=== PATIENT | female | born 2000 | race African-American/Black ===

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

== ENCOUNTER 2024-01-22 23:46 | Emergency (ER) | payer MEDICAID ==
[~2024-01-22] VITALS: Ht 172.7 cm; Wt 92.0 kg
[~2024-01-22 23:46] MED LIST: OLAN7.5T18 PO; OLAN7.5T22 PO
[2024-01-23 00:34] VITALS: BP 115/70; PULSE 100; RESP 16; TEMP 98.5
== END 2024-01-23 04:01 | disposition left against medical advice (07) ==
LOC: EMS 23:46
DX: N93.9 Abnormal uterine and vaginal bleeding, unspecified (principal)
CPT/HCPCS: 99281; Z7502

== ENCOUNTER 2024-10-19 01:55 | Emergency (ER) | payer MEDICAID, OTHER ==
[~2024-10-19 01:55] MED LIST changes: -OLAN7.5T18 PO; +[UNRECOGNIZED DRUG - CODE] PO
== END 2024-10-19 02:35 | disposition left against medical advice (07) ==
LOC: EMS 02:18
DX: J45.909 Unspecified asthma, uncomplicated (principal); Z53.21 Procedure and treatment not carried out due to patient leaving prior to being seen by health care provider

== ENCOUNTER 2024-11-16 04:04 | Emergency (ER) | payer OTHER ==
[~2024-11-16] VITALS: Ht 167.6 cm; Wt 86.0 kg
[2024-11-16 04:07] VITALS: TEMP 98.2
[2024-11-16] MEDS: LORazepam 1 MG TABLET PO ONE (04:59)
[2024-11-16 05:11] LABS: BASOPHILS % (AUTO) 0.8 % (0.0-2.0); EOSINOPHILS % (AUTO) 0.1 % (1.0-6.0); HEMATOCRIT 39.4 % (36-46); HEMOGLOBIN 12.6 g/dL (12.0-16.0); LYMPHOCYTES # (AUTO) 2.1 K/uL (1.0-4.8); LYMPHOCYTES % (AUTO) 24.1 % (22.0-44.0); MEAN CORPUSCULAR HEMOGLOBIN 26.3 pg (26.0-34.0); MEAN CORPUSCULAR VOLUME 82 fL (80-100); MONOCYTES # (AUTO) 0.7 K/uL (0.1-1.0); MONOCYTES % (AUTO) 8.2 % (2.0-9.0); NEUTROPHILS # (AUTO) 5.9 K/uL (1.8-7.7); NEUTROPHILS % (AUTO) 66.8 % (40.0-70.0); PLATELET COUNT (AUTO) 410 K/uL (150-450); RED BLOOD CELL COUNT(AUTO) 4.78 MIL/uL (4.00-5.20); RED CELL DISTRIBUTION WIDTH 14.7 % (11.5-14.5); WHITE BLOOD COUNT (AUTO) 8.8 K/uL (4.5-11.0)
[2024-11-16 05:18] LABS: ANION GAP 9 mmol/L (8-16); CALCIUM, TOTAL 9.3 mg/dL (8.8-10.5); CARBON DIOXIDE 27 mmol/L (22-29); CHLORIDE 103 mmol/L (98-107); CREATININE 0.96 mg/dL (0.60-1.30); GLOMERULAR FILTR. RATE CALC > 60 mL/min (>60); GLUCOSE,RANDOM 107 mg/dL (70-110); POTASSIUM 3.6 mmol/L (3.5-5.1); SODIUM SERUM 139 mmol/L (136-145); UREA NITROGEN, BLOOD 11 mg/dL (7-18)
[2024-11-16 05:30] VITALS: BP 128/81; PULSE 82; RESP 16; O2SAT 100
== END 2024-11-16 06:10 | disposition home or self-care (01) ==
LOC: EMS 04:19
DX: F41.9 Anxiety disorder, unspecified (principal); Z79.899 Other long term (current) drug therapy
CPT/HCPCS: 80048; 84703; 85025; 99283

== ENCOUNTER 2024-11-16 18:30 | Emergency (ER) | payer OTHER ==
[~2024-11-16] VITALS: Ht 172.7 cm; Wt 86.4 kg
[2024-11-16 19:02] VITALS: BP 124/51; PULSE 88; RESP 22; TEMP 98.2; O2SAT 99
[2024-11-16] MEDS: LORazepam 1 MG TABLET PO ONE (20:26)
== END 2024-11-16 20:37 | disposition left against medical advice (07) ==
LOC: EMS 18:30
DX: F41.9 Anxiety disorder, unspecified (principal); Z53.21 Procedure and treatment not carried out due to patient leaving prior to being seen by health care provider
CPT/HCPCS: Z7610

== ENCOUNTER 2024-11-20 21:33 | Emergency (ER) | payer OTHER ==
[~2024-11-20] VITALS: Ht 172.7 cm; Wt 102.7 kg
[2024-11-20] MEDS ORDERED: GUAIFDM PO (22:40)
[2024-11-20] MEDS ORDERED: FLUT1BLS15 IH (22:40)
[2024-11-20] MEDS ORDERED: LORA1TAB25 PO (22:40)
[2024-11-20] MEDS ORDERED: ESCI20TA87 PO (22:40)
[2024-11-20] MEDS ORDERED: ALBU18HF12 IH (22:40)
[2024-11-20 22:48] VITALS: BP 122/88; PULSE 82; RESP 18; O2SAT 98
[2024-11-20] MEDS: LORazepam 2 MG TABLET PO ONE (23:16)
== END 2024-11-21 03:42 | disposition home or self-care (01) ==
LOC: EMS 21:33
DX: J45.901 Unspecified asthma with (acute) exacerbation (principal); J06.9 Acute upper respiratory infection, unspecified; F41.9 Anxiety disorder, unspecified; F20.9 Schizophrenia, unspecified; Z79.899 Other long term (current) drug therapy
CPT/HCPCS: 99283

== ENCOUNTER 2024-12-12 15:01 | Emergency (ER) | payer OTHER ==
[~2024-12-12] VITALS: Ht 172.7 cm; Wt 108.2 kg
[~2024-12-12 15:01] MED LIST changes: +ALBU18HF12 IH; +ESCI20TA87 PO; +FLUT1BLS15 IH; +GUAIFDM PO; +LORA1TAB25 PO; -OLAN7.5T22 PO; -[UNRECOGNIZED DRUG - CODE] PO
[2024-12-12 15:05] VITALS: BP 94/54; PULSE 111; RESP 18; O2SAT 97
[2024-12-12] MEDS ORDERED: IPRA3AMP24 IH (17:29)
[2024-12-12] MEDS ORDERED: PRED-554 PO (17:29)
[2024-12-12] MEDS: LORazepam 2 MG TABLET PO ONE (17:30)
== END 2024-12-12 18:11 | disposition home or self-care (01) ==
LOC: EMS 15:01
DX: J45.901 Unspecified asthma with (acute) exacerbation (principal); F41.9 Anxiety disorder, unspecified; F20.9 Schizophrenia, unspecified; Z79.52 Long term (current) use of systemic steroids; Z79.899 Other long term (current) drug therapy
CPT/HCPCS: 99283

== ENCOUNTER 2024-12-31 11:54 | Emergency (ER) | payer OTHER ==
[~2024-12-31] VITALS: Ht 175.3 cm; Wt 111.6 kg
[~2024-12-31 11:54] MED LIST changes: +IPRA3AMP24 IH; +PRED-554 PO
[2024-12-31 12:04] VITALS: BP 119/35; TEMP 98.4
[2024-12-31] MEDS: IPRATROPIUM BROMIDE 0.5 MG/2.5 ML NEB SOLUTION NEB ONE (12:12)
[2024-12-31] MEDS: ALBUTEROL SULFATE 2.5 MG/0.5 ML NEB SOLUTION NEB ONE (12:12)
[2024-12-31 12:13] VITALS: PULSE 89; RESP 22; O2SAT 100
[2024-12-31 12:15] VITALS: PULSE 89; RESP 22; O2SAT 100
== END 2024-12-31 12:37 | disposition left against medical advice (07) ==
LOC: EMS 12:00
DX: F41.9 Anxiety disorder, unspecified (principal); J45.909 Unspecified asthma, uncomplicated; F20.9 Schizophrenia, unspecified; Z79.52 Long term (current) use of systemic steroids; Z79.899 Other long term (current) drug therapy
CPT/HCPCS: 99283; 94640; J7512

== ENCOUNTER 2025-01-03 15:35 | Emergency (ER) | payer OTHER ==
[~2025-01-03] VITALS: Ht 177.8 cm; Wt 88.6 kg
[2025-01-03 15:37] VITALS: BP 121/82; PULSE 96; RESP 20; TEMP 98.4; O2SAT 99
[2025-01-03] MEDS ORDERED: ESCI20TA37 PO (15:46)
[2025-01-03] MEDS ORDERED: ALBU10.7 IH (15:46)
[2025-01-03] MEDS ORDERED: [UNRECOGNIZED DRUG - CODE] PO (15:46)
[2025-01-03] MEDS ORDERED: FLUT1BLS3 IH (15:46)
[2025-01-09] MEDS ORDERED: FURO20TA5 PO (02:52)
[2025-01-09] MEDS ORDERED: FLUT1BLS3 IH (02:52)
[2025-01-09] MEDS ORDERED: SEMA2PEN SQ (02:52)
== END 2025-01-03 15:59 | disposition home or self-care (01) ==
LOC: EMS 15:37
DX: F41.9 Anxiety disorder, unspecified (principal); F20.9 Schizophrenia, unspecified; Z88.8 Allergy status to other drugs, medicaments and biological substances; Z79.3 Long term (current) use of hormonal contraceptives; Z79.899 Other long term (current) drug therapy
CPT/HCPCS: 99283

== ENCOUNTER 2025-01-08 13:01 | Emergency (ER) | payer OTHER ==
[~2025-01-08] VITALS: Ht 172.7 cm; Wt 115.8 kg
[~2025-01-08 13:01] MED LIST changes: +ALBU10.7 IH; +ESCI20TA37 PO; -ESCI20TA87 PO; -FLUT1BLS15 IH; +FLUT1BLS3 IH; -GUAIFDM PO; -LORA1TAB25 PO; -PRED-554 PO; +[UNRECOGNIZED DRUG - CODE] PO
[2025-01-08 13:04] VITALS: BP 106/81; PULSE 74; RESP 18; TEMP 98.6; O2SAT 99
[2025-01-08] MEDS ORDERED: SEMA0.258 SQ (13:12)
[2025-01-08] MEDS ORDERED: FURO20TA5 PO (13:45)
[2025-01-08] MEDS ORDERED: SEMA2PEN SQ (13:45)
[2025-01-08] MEDS ORDERED: FLUT1BLS3 IH (13:45)
[2025-01-09] MEDS ORDERED: SEMA2PEN SQ (02:52)
[2025-01-09] MEDS ORDERED: FLUT1BLS3 IH (02:52)
[2025-01-09] MEDS ORDERED: FURO20TA5 PO (02:52)
== END 2025-01-08 14:08 | disposition home or self-care (01) ==
LOC: EMS 13:09
DX: F41.9 Anxiety disorder, unspecified (principal); F20.9 Schizophrenia, unspecified; J45.909 Unspecified asthma, uncomplicated; Z79.3 Long term (current) use of hormonal contraceptives; Z88.8 Allergy status to other drugs, medicaments and biological substances; Z79.899 Other long term (current) drug therapy; Z76.0 Encounter for issue of repeat prescription
CPT/HCPCS: 99281; Z7502

== ENCOUNTER 2025-01-12 22:30 | Emergency (ER) | payer OTHER ==
[~2025-01-12] VITALS: Ht 172.7 cm; Wt 113.6 kg
[~2025-01-12 22:30] MED LIST changes: +FURO20TA5 PO; +SEMA0.258 SQ; +SEMA2PEN SQ
[2025-01-12] MEDS ORDERED: 0.9% SODIUM CHLORIDE 5 ML NEB SOLUTION NEB ONE (23:31)
[2025-01-12] MEDS ORDERED: ALPR-342 PO (23:34)
[2025-01-12] MEDS ORDERED: METH4TAB3 PO (23:34)
[2025-01-12] MEDS ORDERED: DIPH25CA85 PO (23:34)
[2025-01-12] MEDS ORDERED: CEPH-558 PO (23:34)
[2025-01-12] MEDS: DEXAMETHASONE SOD PHOS 4 MG/ML 5 ML VIAL IM ONE (23:38)
[2025-01-12] MEDS: IPRATROPIUM BROMIDE 0.5 MG/2.5 ML NEB SOLUTION NEB ONE (23:40)
[2025-01-12] MEDS: ALBUTEROL SULFATE 2.5 MG/0.5 ML NEB SOLUTION NEB ONE (23:40)
[2025-01-12 23:45] VITALS: PULSE 82; RESP 18; O2SAT 100
[2025-01-13 00:02] VITALS: PULSE 91; RESP 18; O2SAT 100
[2025-01-13] MEDS: PB/HYOSCY/ATR/SCOP/LIDO/MAALOX 55 ML BOTTLE PO ONE (00:14)
[2025-01-13 00:26] VITALS: BP 128/74; PULSE 93; RESP 18; TEMP 97.8; O2SAT 100
[2025-01-13] MEDS ORDERED: ALBU10.7 IH (15:16)
[2025-01-13] MEDS ORDERED: ALBU18HF12 IH (15:16)
[2025-01-13] MEDS ORDERED: ALPR-709 PO (22:13)
== END 2025-01-13 02:57 | disposition home or self-care (01) ==
LOC: EMS 22:30
DX: J45.901 Unspecified asthma with (acute) exacerbation (principal); F41.9 Anxiety disorder, unspecified; F20.9 Schizophrenia, unspecified; Z88.8 Allergy status to other drugs, medicaments and biological substances; Z79.3 Long term (current) use of hormonal contraceptives; Z79.899 Other long term (current) drug therapy
CPT/HCPCS: 99285; 94640; 96372; J1100

== ENCOUNTER 2025-01-13 14:14 | Emergency (ER) | payer OTHER ==
[~2025-01-13] VITALS: Ht 177.8 cm; Wt 111.8 kg
[~2025-01-13 14:14] MED LIST changes: +ALPR-342 PO; +CEPH-558 PO; +DIPH25CA85 PO; +METH4TAB3 PO
[2025-01-13 14:23] VITALS: TEMP 98.9
[2025-01-13] MEDS ORDERED: ALBU18HF12 IH (15:16)
[2025-01-13] MEDS ORDERED: ALBU10.7 IH (15:16)
[2025-01-13] MEDS: ALBUTEROL SULFATE 2.5 MG/0.5 ML NEB SOLUTION NEB ONE ×2 (15:55→16:07)
[2025-01-13] MEDS: IPRATROPIUM BROMIDE 0.5 MG/2.5 ML NEB SOLUTION NEB ONE ×2 (15:55→16:08)
[2025-01-13 15:56] VITALS: PULSE 97; RESP 16; O2SAT 97
[2025-01-13 16:00] VITALS: PULSE 97; RESP 16; O2SAT 97
[2025-01-13 16:09] VITALS: PULSE 97; RESP 16; O2SAT 100
[2025-01-13 16:32] VITALS: BP 126/79; PULSE 96; RESP 16; O2SAT 97
[2025-01-13] MEDS ORDERED: ALPR-709 PO (22:13)
== END 2025-01-13 17:14 | disposition left against medical advice (07) ==
LOC: EMS 14:14
DX: J45.901 Unspecified asthma with (acute) exacerbation (principal); F41.9 Anxiety disorder, unspecified; F20.9 Schizophrenia, unspecified; Z88.8 Allergy status to other drugs, medicaments and biological substances; Z79.899 Other long term (current) drug therapy
CPT/HCPCS: 99284; 94640; 96372; J2919; J1200; 94760

== ENCOUNTER 2025-01-21 05:01 | Emergency (ER) | payer OTHER ==
[~2025-01-21] VITALS: Ht 172.7 cm; Wt 107.7 kg
[~2025-01-21 05:01] MED LIST changes: +ALPR-709 PO; -[UNRECOGNIZED DRUG - CODE] PO
[2025-01-21 07:00] VITALS: PULSE 97; RESP 20; O2SAT 98; O2SAT 99
[2025-01-21] MEDS: ALBUTEROL SULFATE HFA 90 MCG/PUFF 8 GM INHALER IH ONE (07:00)
[2025-01-21] MEDS: ALBUTEROL SULFATE 2.5 MG/0.5 ML NEB SOLUTION NEB ONE (07:00)
[2025-01-21] MEDS: IPRATROPIUM BROMIDE 0.5 MG/2.5 ML NEB SOLUTION NEB ONE (07:00)
[2025-01-21 07:11] VITALS: PULSE 95; RESP 20; O2SAT 100
[2025-01-21 07:17] VITALS: BP 112/73; PULSE 95; RESP 18; TEMP 98.1; O2SAT 100
== END 2025-01-21 07:27 | disposition left against medical advice (07) ==
LOC: EMS 05:01
DX: R60.0 Localized edema (principal); F41.9 Anxiety disorder, unspecified; J45.909 Unspecified asthma, uncomplicated; F20.9 Schizophrenia, unspecified; Z88.8 Allergy status to other drugs, medicaments and biological substances; Z79.899 Other long term (current) drug therapy
CPT/HCPCS: 99283; 94640; J3535

== ENCOUNTER 2025-01-26 19:24 | Emergency (ER) | payer OTHER ==
[~2025-01-26] VITALS: Ht 172.7 cm; Wt 103.6 kg
[2025-01-26 19:27] VITALS: TEMP 98
[2025-01-26] MEDS: DEXAMETHASONE SOD PHOS 4 MG/ML VIAL IM ONE (20:36)
[2025-01-26 20:41] VITALS: PULSE 61; RESP 24; O2SAT 98
[2025-01-26] MEDS: IPRATROPIUM BROMIDE 0.5 MG/2.5 ML NEB SOLUTION NEB ONE (20:41)
[2025-01-26] MEDS: ALBUTEROL SULFATE 2.5 MG/0.5 ML NEB SOLUTION NEB ONE (20:41)
[2025-01-26 20:56] VITALS: PULSE 81; RESP 20; O2SAT 100
[2025-01-26] MEDS ORDERED: GUAIFDM PO (20:58)
[2025-01-26 21:00] VITALS: BP 115/68; PULSE 91; RESP 15; O2SAT 100
== END 2025-01-26 21:12 | disposition home or self-care (01) ==
LOC: EMS 19:24
DX: F41.0 Panic disorder [episodic paroxysmal anxiety] (principal); F41.9 Anxiety disorder, unspecified; J45.901 Unspecified asthma with (acute) exacerbation; F20.9 Schizophrenia, unspecified; Z88.8 Allergy status to other drugs, medicaments and biological substances; Z79.899 Other long term (current) drug therapy
CPT/HCPCS: 99285; 94640; 96372; J1100; 94760

== ENCOUNTER 2025-02-06 20:17 | Emergency (ER) | payer OTHER ==
[~2025-02-06] VITALS: Ht 172.7 cm; Wt 104.0 kg
[~2025-02-06 20:17] MED LIST changes: -ALPR-342 PO; -ALPR-709 PO; -CEPH-558 PO; -DIPH25CA85 PO; +GUAIFDM PO; -METH4TAB3 PO; -SEMA0.258 SQ
[2025-02-06 20:20] VITALS: BP 126/90; TEMP 98
[2025-02-06] MEDS ORDERED: 0.9% SODIUM CHLORIDE 15 ML NEB SOLUTION NEB ONE (21:01)
[2025-02-06] MEDS: ALBUTEROL SULFATE 2.5 MG/0.5 ML 5 ML NEB SOLUTION NEB ONE (21:08)
[2025-02-06] MEDS: IPRATROPIUM BROMIDE 0.5 MG/2.5 ML NEB SOLUTION NEB ONE (21:08)
[2025-02-06 21:10] VITALS: PULSE 73; PULSE 94; RESP 18; O2SAT 94; O2SAT 99
[2025-02-06] MEDS ORDERED: PRED-554 PO (21:36)
[2025-02-06] MEDS ORDERED: FURO20TA5 PO (21:36)
[2025-02-06] MEDS ORDERED: IPRA3AMP24 NEB (21:36)
== END 2025-02-06 22:27 | disposition home or self-care (01) ==
LOC: EMS 20:17
DX: J45.909 Unspecified asthma, uncomplicated (principal); F41.9 Anxiety disorder, unspecified; F20.9 Schizophrenia, unspecified; Z88.8 Allergy status to other drugs, medicaments and biological substances; Z76.0 Encounter for issue of repeat prescription; Z79.899 Other long term (current) drug therapy
CPT/HCPCS: 94640; 94644; 99283

== ENCOUNTER → 2025-02-09 | Emergency (ER) | payer OTHER ==
[~2025-02-09] VITALS: Ht 175.3 cm; Wt 106.4 kg
[~2025-02-09] MED LIST changes: +IPRA3AMP24 NEB; +PRED-554 PO
[2025-02-09 09:34] VITALS: BP 102/84; PULSE 102; RESP 18; TEMP 98; O2SAT 99
== END | disposition still patient (30) ==
LOC: EMS 09:31
DX: R06.02 Shortness of breath (principal); F41.9 Anxiety disorder, unspecified; F20.9 Schizophrenia, unspecified; J45.909 Unspecified asthma, uncomplicated; Z79.52 Long term (current) use of systemic steroids; Z88.8 Allergy status to other drugs, medicaments and biological substances; Z79.899 Other long term (current) drug therapy
CPT/HCPCS: 99282; Z7502

== ENCOUNTER 2025-03-10 04:12 | Emergency (ER) | payer OTHER ==
[~2025-03-10] VITALS: Ht 172.7 cm; Wt 111.5 kg
[2025-03-10 04:15] VITALS: BP 102/69; TEMP 97.9; O2SAT 98
[2025-03-10] MEDS ORDERED: IPRA3AMP24 IH (05:24)
[2025-03-10] MEDS ORDERED: ALBU10.7 IH (05:24)
[2025-03-10] MEDS: IPRATROPIUM BROMIDE 0.5 MG/2.5 ML NEB SOLUTION NEB ONE (05:43)
[2025-03-10] MEDS: ALBUTEROL SULFATE 2.5 MG/0.5 ML NEB SOLUTION NEB ONE (05:43)
[2025-03-10 05:45] VITALS: PULSE 81; RESP 18; O2SAT 98; O2SAT 99
[2025-03-10 06:03] VITALS: PULSE 82; RESP 18; O2SAT 100
== END 2025-03-10 06:27 | disposition home or self-care (01) ==
LOC: EMS 04:12
DX: J45.901 Unspecified asthma with (acute) exacerbation (principal); F20.9 Schizophrenia, unspecified; F41.9 Anxiety disorder, unspecified; Z79.52 Long term (current) use of systemic steroids; Z79.899 Other long term (current) drug therapy; Z88.8 Allergy status to other drugs, medicaments and biological substances; Z91.013 Allergy to seafood
CPT/HCPCS: 99283; 94640; J8540

== ENCOUNTER 2025-04-02 16:56 | Emergency (ER) | payer OTHER ==
[~2025-04-02] VITALS: Ht 172.7 cm; Wt 121.8 kg
[2025-04-02 17:01] VITALS: BP 110/72; PULSE 129; RESP 18; TEMP 98.4; O2SAT 97
== END 2025-04-02 22:19 | disposition left against medical advice (07) ==
LOC: EMS 16:56
DX: K59.00 Constipation, unspecified (principal); F41.9 Anxiety disorder, unspecified; F20.9 Schizophrenia, unspecified; F45.0 Somatization disorder; J45.909 Unspecified asthma, uncomplicated; Z79.52 Long term (current) use of systemic steroids; Z79.899 Other long term (current) drug therapy; Z88.8 Allergy status to other drugs, medicaments and biological substances; Z91.013 Allergy to seafood
CPT/HCPCS: 99282; Z7502

== ENCOUNTER 2025-04-05 13:15 | Emergency (ER) | payer OTHER ==
[~2025-04-05] VITALS: Ht 172.7 cm; Wt 120.0 kg
[2025-04-05 13:23] VITALS: BP 110/78; PULSE 120; RESP 16; TEMP 98.3; O2SAT 98
[2025-04-05] MEDS ORDERED: POLY119P3 PO (13:43)
== END 2025-04-05 14:55 | disposition home or self-care (01) ==
LOC: EMS 13:24
DX: K59.00 Constipation, unspecified (principal); F41.9 Anxiety disorder, unspecified; F45.0 Somatization disorder; J45.909 Unspecified asthma, uncomplicated; F20.9 Schizophrenia, unspecified; Z79.52 Long term (current) use of systemic steroids; Z79.899 Other long term (current) drug therapy; Z91.013 Allergy to seafood
CPT/HCPCS: 99282; Z7502